=== PATIENT | female | born 1980 | race Hispanic/Latino ===

== ENCOUNTER → 2017-08-13 | Outpatient (CLI) | payer SELFPAY | LOC: LAB.O 16:17 | PROVIDERS: ATTEND Obstetrics & Gynecology | DX: O20.0 Threatened abortion (principal) ==

== ENCOUNTER → 2017-08-15 | Outpatient (CLI) | payer OTHER | LOC: LAB.O 13:29 | PROVIDERS: ATTEND Obstetrics & Gynecology | DX: O20.0 Threatened abortion (principal) ==

== ENCOUNTER → 2019-06-05 | Outpatient (CLI) | payer OTHER | LOC: LAB.O 10:31 | PROVIDERS: ATTEND Obstetrics & Gynecology | DX: Z33.1 Pregnant state, incidental (principal) ==